=== PATIENT | male | born 1935 | race Caucasian/White ===

== ENCOUNTER 2017-02-13 10:04 | Inpatient (IN) | payer OTHER, MEDICARE ==
[~2017-02-13] VITALS: Ht 170.2 cm; Wt 76.2 kg
[~2017-02-13 10:04] MED LIST: FLOMAX0.4 M1 PO; MEDROL4 M2 PO; NASONEX17 GM NASB; TESSALON PERLE100 M1 PO; VENTOLIN HFA18 GM INH
--- NOTE | 2017-02-13 10:11 | NUR ---
PT STATES HE HAS HAD CHEST PAIN ON AND OFF FOR ONE WEEK. BIBA TODAY FOR FEELING DIZZY AND LIGHTHEADED ONLY WHEN HE WALKS OUTSIDE. PT IS SYMPTOM FREE WHEN HE IS AT REST. PT DENIES CHEST PAIN AT THIS TIME. EKG IN PROGRESS
[2017-02-13] MEDS ORDERED: HYDROCHLOROTHIA25 M1 PO (10:17)
[2017-02-13] MEDS ORDERED: LANSOPRAZOLE30 M2 PO (10:18)
[2017-02-13] MEDS ORDERED: BUPROPION XL150 MG PO (10:19)
[2017-02-13] MEDS ORDERED: CLONAZEPAM0.5 M2 PO (10:19)
[2017-02-13] MEDS ORDERED: DONEPEZIL HCL5 MG PO (10:20)
[2017-02-13] MEDS ORDERED: FLOMAX0.4 M1 PO (10:21)
[2017-02-13] MEDS ORDERED: METOPROLOL SUCC50 M2 PO (10:21)
[2017-02-13] MEDS ORDERED: TRAZODONE HCL100 M1 PO (10:21)
[2017-02-13] MEDS ORDERED: ALLEGRA ALLERGY60 M1 PO (10:23)
[2017-02-13] MEDS ORDERED: STENDRA PO (10:23)
[2017-02-13] MEDS ORDERED: ASPIRIN EC81 M1 PO (10:23)
--- NOTE | 2017-02-13 10:30 | NUR ---
PT TO CT SCAN VIA STRETCHER
[2017-02-13 10:50] LABS: ABSOLUTE BASOPHIL COUNT 0 /CUMM (0.0-0.2); ABSOLUTE EOSINOPHIL COUNT 0.4 /CUMM (0.0-0.7); ABSOLUTE GRANULOCYTE CT 4.1 /CUMM (1.4-6.5); ABSOLUTE LYMPH COUNT 1.3 /CUMM (1.2-3.4); ABSOLUTE MONOCYTE COUNT 0.4 /CUMM (0.10-0.60); BASOPHIL % 0.4 % (0.0-2.0); EOSINOPHIL % 6.5 % (0-5); GRANULOCYTE % 64.9 % (42.2-75.2); HEMATOCRIT 38.7 % (42-52); MEAN CORPUSCULAR HGB CONC 34.6 G/DL (33.0-37.0); MEAN CORPUSCULAR VOLUME 95.3 FL (80.0-94.0); MEAN PLATELET VOLUME 7.1 FL (7.4-10.4); PLATELET COUNT 303 /CUMM (130-400); RBC DISTRIBUTION WIDTH 13.6 % (11.5-14.5); RED BLOOD CELL CT 4.06 /CUMM (4.70-6.10); WHITE BLOOD CELL COUNT 6.3 /CUMM (4.8-10.8)
--- NOTE | 2017-02-13 11:24 | NUR ---
[facility] FAMILY AT BEDSIDE
--- NOTE | 2017-02-13 11:27 | CT SCAN REPORT ---
EXAMINATION: CT HEAD WITHOUT CONTRAST CLINICAL INFORMATION: Dizziness, gait instability. COMPARISON: CT scan of the head 08/14/2016. TECHNIQUE: Contiguous axial imaging was performed from the skull base to vertex without intravenous administration of contrast. DLP: 600.71 mGy-cm FINDINGS: There is no evidence of acute intracranial hemorrhage or territorial infarction. No abnormal mass effect or midline shift is seen. South to white matter differentiation is well preserved. No extra-axial fluid collections are identified. There is mild prominence of the ventricles with commensurate sulcal prominence, similar compared to the prior study and consistent with mild diffuse volume loss. Low attenuation in the periventricular white matter is most consistent with chronic microvascular ischemic disease. This is again noted to be most prominent in the posterior right masters radiata. There are no acute osseous findings. There are degenerative changes in the bilateral temporomandibular joints. The soft tissues are unremarkable. The mastoid air cells are well-aerated. There is mucoperiosteal thickening in the anterior left ethmoid air cells, increased compared to the prior study. The nasal septum is deviated to the right and there is a prominent right-sided bony nasal septal spur. IMPRESSION: 1. There are no acute intracranial bleeds or territorial infarcts. 2. There are changes consistent with mild diffuse volume loss and there are sequelae of chronic microvascular ischemic disease.
--- NOTE | 2017-02-13 11:28 | RADIOLOGY REPORT ---
EXAMINATION: XR PORTABLE CHEST CLINICAL INFORMATION: Chest pain and weakness. COMPARISON: Chest 03/21/2016. TECHNIQUE: Portable AP view of the chest was obtained. FINDINGS: Both lungs are fairly well-expanded and clear of acute process. The heart size is enlarged. Pulmonary vascularity is normal. No gross bony abnormality seen. IMPRESSION: Mild cardiomegaly. No acute process seen.
--- NOTE | 2017-02-13 11:45 | ED AMS/SEIZURE/WEAK/DIZZY ---
History of Present Illness General Chief Complaint: Chest Pain Stated Complaint: BIBA CP Source: patient, family, old records, EMS Exam Limitations: no limitations Vital Signs & Intake/Output Vital Signs & Intake/Output Vital Signs Date Time Temp Pulse Resp B/P Pulse O2 O2 Flow FiO2 Ox Delivery Rate 02/13 1352 98.0 58 16 132/74 95 Room Air 02/13 1120 55 16 128/67 94 Room Air 02/13 1027 97.7 52 16 146/78 93 Room Air 02/13 1011 95 Allergies Coded Allergies: azithromycin (From ZITHROMAX) (UNKNOWN 02/13/17) Penicillins (Mild, ABDOMINAL CRAMPING 10/31/16) Uncoded Allergies: MRI DYE (Severe, RED, HOT SKIN REACTION 10/31/16) Reconcile Medications Aspirin (Ecotrin*) 81 MG TABLET.DR 1 TAB PO DAILY SUPPLEMENT (Reported) Bupropion HCl (Bupropion XL) 150 MG TAB.ER.24H 1 TAB PO DAILY DEPRESSION ( Reported) Clonazepam 0.5 MG TABLET 1 TAB PO QHS SLEEP (Reported) Donepezil HCl 5 MG TABLET 1 TAB PO DAILY DEMENTIA (Reported) Fexofenadine HCl (Karie Allergy) 60 MG TABLET 180 MG PO D ALLERGY (Reported ) Hydrochlorothiazide 25 MG TABLET 1 TAB PO DAILY HTN (Reported) Lansoprazole 30 MG CAPSULE.DR 1 CAP PO DAILY GERD (Reported) Metoprolol Succinate 50 MG TAB.ER.24H 1 TAB PO DAILY HTN (Reported) Mometasone Furoate (Nasonex) 17 GM SPRAY.PUMP 2 SPRAY NASB DAILY ALLERGIC RHINITIS Tamsulosin HCl (Flomax) 0.4 MG CAP.ER.24H 1 CAP PO DAILY KIDNEY STONE Trazodone HCl 100 MG TABLET 1 TAB PO QPM SLEEP (Reported) Core Measure Meds Pre-Hospital aspirin Triage Note: PT STATES HE HAS HAD CHEST PAIN ON AND OFF FOR ONE WEEK. BIBA TODAY FOR FEELING DIZZY AND LIGHTHEADED ONLY WHEN HE WALKS OUTSIDE. PT IS SYMPTOM FREE WHEN HE IS AT REST. PT DENIES CHEST PAIN AT THIS TIME. EKG IN PROGRESS Triage Nurses Notes Reviewed? yes Onset: several weeks Duration: week(s):, continues in ED, intermittent Timing: recent history Injury Environment: home Severity: moderate Modifying Factors: Improves With: rest. Worsens With: movement. HPI: Several weeks prior to admission patient reports episodes of dizziness and feeling off balance when walking worse when standing. He also complains of chest pain sharp improving with ambulation nonradiating intermittent. He denies fever chills nausea vomiting diarrhea abdominal pain shortness of breath headache dysuria rash bleeding congestion change in hearing. Past History Travel History Traveled to [place] past 21 day No Medical History Any Pertinent Medical History? see below for history Neurological: dementia, ABNORMAL INV. 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 No Review of Systems Review of Systems Constitutional: Reports: see HPI, malaise. EENTM: Reports: no symptoms. Respiratory: Reports: no symptoms. Cardiovascular: Reports: see HPI, chest pain. GI: Reports: no symptoms. Genitourinary: Reports: no symptoms. Musculoskeletal: Reports: no symptoms. Skin: Reports: no symptoms. Neurological/Psychological: Reports: see HPI. Hematologic/Endocrine: Reports: no symptoms. Immunologic/Allergic: Reports: no symptoms. All Other Systems: Reviewed and Negative Physical Exam Physical Exam General Appearance: well developed/nourished, alert, awake, anxious, mild distress Head: atraumatic, normal appearance Eyes: Bilateral: normal appearance, PERRL, EOMI, other (nystagmus). Ears, Nose, Throat: normal pharynx, normal ENT inspection Neck: normal inspection, supple, full range of motion, no midline tenderness Respiratory: normal breath sounds, chest non-tender, no respiratory distress, quiet respiration, lungs clear Cardiovascular: regular rate/rhythm, normal peripheral pulses, norml femoral pulses equa Peripheral Pulses: 4+ carotid (R), 4+ carotid (L) Gastrointestinal: normal bowel sounds, soft, non-tender, no organomegaly Back: normal inspection, normal range of motion Extremities: normal range of motion, no ligament instability Neurologic/Psych: no motor/sensory deficits, awake, alert, oriented x 3, normal mood/affect, 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 Skin: intact, normal color Lymphatic: no anterior cervical lawrence Core Measures ACS in differential dx? Yes ASA ordered for poss ACS? No-ACS ruled out CVA/TIA Diagnosis: No Severe Sepsis Present: No Septic Shock Present: No Progress Differential Diagnosis: arrythmia, anemia, benign positional vertigo, CVA/stroke , electrolyte imbalance, hypoxia Plan of Care: Orders Procedure Date/time Status Regular Diet 02/13 L Complete Regular Diet 02/13 D Active Code Status 02/13 1518 Active Saline Lock 02/13 1500 Active Pathway - chart 02/13 1500 Active House Staff 02/13 1500 Active Patient Data 02/13 1447 Active OXYGEN SETUP (GEN) 02/13 1425 Active Saline Lock 02/13 1425 Active Admit to inpatient 02/13 1425 Active Vital Signs 02/13 1425 Active Activity/Ambulation 02/13 1425 Active Code Status 02/13 1425 Complete CASE MANAGEMENT CONSULT 02/13 1352 Active Add-on Test (ER Only) 02/13 1026 Active MAGNESIUM 02/13 1024 Active VITAMIN B12 02/13 1024 Active TROPONIN LEVEL 02/13 1013 Active COMPREHENSIVE METABOLIC PANEL 02/13 1013 Active CBC WITHOUT DIFFERENTIAL 02/13 1013 Complete EKG 02/13 1006 Active PT Evaluate & Treat 02/13 UNK Active Lab Add-on Test 02/13 UNK Active VTE Mechanical Prophylaxis 02/13 UNK Active MISTAKE 02/13 UNK Active Current Medications Sig/Lali Start time Last Medication Dose Stop Time Status Admin Acetaminophen 650 MG Q6P PRN 02/13 1500 AC (Tylenol) Ketorolac 15 MG Q6P PRN 02/13 1500 AC Tromethamine (Toradol) Morphine Sulfate 2 MG Q4P PRN 02/13 1500 AC (Morphine) Laboratory Tests 02/13/17 1024: Anion Gap 10, Estimated GFR > 60, BUN/Creatinine Ratio 23.8, Glucose 93, Calcium 9.6, Magnesium 1.8, Total Bilirubin 0.7, AST 32, ALT 31, Alkaline Phosphatase 61 , Troponin I < 0.01, Total Protein 6.6, Albumin 3.8, Globulin 2.8, Albumin/ Globulin Ratio 1.4, Vitamin B12 Pending, CBC w Diff NO MAN DIFF REQ, RBC 4.06 L , MCV 95.3 H, MCH 33.0 H, RDW 13.6, MPV 7.1 L, Gran % 64.9, Lymphocytes % 21.2, Monocytes % 7.0, Eosinophils % 6.5 H, Basophils % 0.4, Absolute Granulocytes 4.1, Absolute Lymphocytes 1.3, Absolute Monocytes 0.4, Absolute Eosinophils 0.4, Absolute Basophils 0, PUBS MCHC 34.6 Diagnostic Imaging: Viewed by Me: Radiology Read, CT Scan. Discussed w/RAD: Radiology Read, CT Scan. Radiology Impression: no acute abnormality CXR Impression: no acute abnormality Initial ED EKG: normal intervals, normal p-waves, normal sinus rhythm, LBBB ( incomplete), no ST T wave changes Rhythm Strip: normal sinus rhythm Comments: Patient with unsteady gait still feeling dizzy feeling like he would fall without assistance. Family with walk still with unsteady gait. Poor response to scopolamine patch and meclizine. Departure Departure Disposition: STILL A PATIENT Condition: Stable Clinical Impression Primary Impression: Vertigo Secondary Impressions: Gait instability Referrals: RINA RICO,HAYLEY Barker (PCP/Family) Departure Forms: Customer Survey General Discharge Information Admission Note Spoke With: SHANKAR MYERS MD Documentation of Exam: Documentation of any treatments & extenuating circumstances including Concerns Regarding Discharge (functional status, medication knowledge or non-compliance, living conditions, etc.) that warrant an admission rather than observation: Physical therapy medication adjustment ensure safety prevent falls and injury continuing care discharge planning
--- NOTE | 2017-02-13 11:46 | NUR ---
INFORMED WAITING PERFORMED
--- NOTE | 2017-02-13 12:06 | NUR ---
PT AMBULATED DOWN [facility] WITH STAND BY ASSIST OF ONE PT STATES HE FEELS OFF BALANCE "NOT LIKE THE ROOM IS SPINNING, JUST OFF BALANCE" DR. HAZEL MADE AWARE
--- NOTE | 2017-02-13 12:11 | NUR ---
PT TO HAVE LUNCH AND BE RE-EVALED
--- NOTE | 2017-02-13 13:21 | NUR ---
PT AMBULATED AFTER EATING AND STATES HE CONT. TO FEEL DIZZY MD MADE AWARE CONT. CARE TO VISIT PT
--- NOTE | 2017-02-13 13:51 | NUR ---
PT AMBULATED WITH WALKER GAIT STEADY BUT CONT. TO FEEL DIZZY AND UNSAFE
--- NOTE | 2017-02-13 14:14 | NUR ---
Case mgmnt TSF: I went in and introduced myself to patient and role. We discussed plans of care and patient is agreeable. Patient stated that he still felt off balance and not really safe. CM continuing to follow.
--- NOTE | 2017-02-13 14:48 | NUR ---
HOUSE STAFF IN ROOM FOR EVAL.
--- NOTE | 2017-02-13 15:24 | History & Physical ---
WILLIAM NAVARRO 02/13/17 1524: General Information and HPI MD Statement: I have seen and personally examined BOBBY HERNANDEZ and documented this H&P. The patient is a 82 year old M who presented with a patient stated chief complaint of dizziness Source of Information: patient Exam Limitations: no limitations History of Present Illness: 82 year old gentleman with b/l hearing impairment, from assisted living ([facility]), past medical history significant for HTN, Alzhiemers and BPH, BIBA ambulance for evaluation of dizziness. Dizziness is of three days duration and was sudden in onset and is intermittent. States that it comes on when he is already standing and starts to walk and feels off balance during those times. No allieviating factors. Feels his dizziness has improved with meclizine which was given in ED. Denies falls, poor PO intake numbness,tingling, weakness of extremities, vision changes or headaches. Of note he reports a transient episode of word finding difficulty this morning around 9 am. States that chest pain is chronic (years) in nature and comes on at times when he walks and subsides on its on. Denies shortnes of breath, palpitations or lower extremity swelling. He continues to drive and independant with activities of daily living and ambulation. Allergies/Medications Allergies: Coded Allergies: azithromycin (From ZITHROMAX) (UNKNOWN 02/13/17) Penicillins (Mild, ABDOMINAL CRAMPING 10/31/16) Uncoded Allergies: MRI DYE (Severe, RED, HOT SKIN REACTION 10/31/16) Home Med list Aspirin (Ecotrin*) 81 MG TABLET.DR 1 TAB PO DAILY SUPPLEMENT (Reported) Bupropion HCl (Bupropion XL) 150 MG TAB.ER.24H 1 TAB PO DAILY DEPRESSION ( Reported) Clonazepam 0.5 MG TABLET 1 TAB PO QHS SLEEP (Reported) Donepezil HCl 5 MG TABLET 1 TAB PO DAILY DEMENTIA (Reported) Fexofenadine HCl (Karie Allergy) 60 MG TABLET 180 MG PO D ALLERGY (Reported ) Hydrochlorothiazide 25 MG TABLET 1 TAB PO DAILY HTN (Reported) Lansoprazole 30 MG CAPSULE.DR 1 CAP PO DAILY GERD (Reported) Metoprolol Succinate 50 MG TAB.ER.24H 1 TAB PO DAILY HTN (Reported) Mometasone Furoate (Nasonex) 17 GM SPRAY.PUMP 2 SPRAY NASB DAILY ALLERGIC RHINITIS Tamsulosin HCl (Flomax) 0.4 MG CAP.ER.24H 1 CAP PO DAILY KIDNEY STONE Trazodone HCl 100 MG TABLET 1 TAB PO QPM SLEEP (Reported) Compliance With Home Meds: GOOD Past History Travel History Traveled to [place] past 21 day No Medical History Neurological: dementia EENT: hearing loss Cardiovascular: hypertension, hyperlipidemia Respiratory: NONE, INSOMNIA Gastrointestinal: GERD Hepatic: NONE Renal: NONE Musculoskeletal: NONE Psychiatric: depression Endocrine: NONE Blood Disorders: NONE Cancer(s): MELANOMA 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 EENTM: Reports: blurred vision, double vision, visual changes, ear pain. Cardiovascular: Denies: chest pain, edema, orthopena, palpitations, peripheral edema, syncope. Respiratory: Denies: cough, hemoptysis, orthopnea, short of breath, sputum production, stridor, wheezing. GI: Denies: abdominal pain, bloating, constipation, diarrhea, distention, bowel incontinence, melena, nausea, bloody stool, changes in stool, vomiting, steatorrhea. Genitourinary: Denies: discharge, dysuria, frequency, hematuria, hesitation, nocturia, pain, urgency. Musculoskeletal: Denies: back pain, gout, joint pain, joint swelling, muscle pain, muscle stiffness, neck pain. Neurological/Psychological: Reports: dementia. Denies: ataxia, cognitive dysfunction, confusion, headache, numbness, paresthesia, pre-existing deficit, petit mal seizures, tingling, tremors, tonic-clonic seizures, unable to move lower ext, unable to move upper ext, weakness, other. Exam & Diagnostic Data Last 24 Hrs of Vital Signs/I&O Vital Signs Date Time Temp Pulse Resp B/P Pulse O2 O2 Flow FiO2 Ox Delivery Rate 02/13 1352 98.0 58 16 132/74 95 Room Air 02/13 1120 55 16 128/67 94 Room Air 02/13 1027 97.7 52 16 146/78 93 Room Air 02/13 1011 95 Intake & Output 02/13 1600 02/13 0800 04 0000 Intake Total Output Total Balance Patient 168 lb Weight Physical Exam General Appearance Alert, Oriented X3, Cooperative, No Acute Distress HEENT Atraumatic, PERRLA, EOMI, Mucous Membr. moist/pink Neck Supple, No JVD, No thryomegaly, +2 Carotid Pulse wo Bruit Lymphatic Cervical nl Cardiovascular Regular Rate, Normal S1, Normal S2, No Murmurs Lungs Clear to Auscultation, Normal Air Movement Abdomen Normal Bowel Sounds, Soft, No Tenderness Neurological Normal Gait, Normal Speech, Strength at 5/5 X4 Ext, Normal Tone, Sensation Intact, Cranial Nerves 3-12 NL, negative pronator drift, mildly positive Rhomberg Extremities No Edema Last 24 Hrs of Labs/[place]: Laboratory Tests 02/13/17 1024: Anion Gap 10, Estimated GFR > 60, BUN/Creatinine Ratio 23.8, Glucose 93, Calcium 9.6, Magnesium 1.8, Total Bilirubin 0.7, AST 32, ALT 31, Alkaline Phosphatase 61 , Troponin I < 0.01, Total Protein 6.6, Albumin 3.8, Globulin 2.8, Albumin/ Globulin Ratio 1.4, Vitamin B12 Pending, CBC w Diff NO MAN DIFF REQ, RBC 4.06 L , MCV 95.3 H, MCH 33.0 H, RDW 13.6, MPV 7.1 L, Gran % 64.9, Lymphocytes % 21.2, Monocytes % 7.0, Eosinophils % 6.5 H, Basophils % 0.4, Absolute Granulocytes 4.1, Absolute Lymphocytes 1.3, Absolute Monocytes 0.4, Absolute Eosinophils 0.4, Absolute Basophils 0, PUBS MCHC 34.6 Diagnostic Data EKG Results NSR. first degree heart block CXR Results FINDINGS: Both lungs are fairly well-expanded and clear of acute process. The heart size is enlarged. Pulmonary vascularity is normal. No gross bony abnormality seen. IMPRESSION: Mild cardiomegaly. No acute process seen. Other Results SERVICE DATE: 02/13/17 EXAM TYPE: CAT - CT HEAD WO IV CONTRAST EXAMINATION: CT HEAD WITHOUT CONTRAST FINDINGS: There is no evidence of acute intracranial hemorrhage or territorial infarction. No abnormal mass effect or midline shift is seen. South to white matter differentiation is well preserved. No extra-axial fluid collections are identified. There is mild prominence of the ventricles with commensurate sulcal prominence, similar compared to the prior study and consistent with mild diffuse volume loss. Low attenuation in the periventricular white matter is most consistent with chronic microvascular ischemic disease. This is again noted to be most prominent in the posterior right masters radiata. There are no acute osseous findings. There are degenerative changes in the bilateral temporomandibular joints. The soft tissues are unremarkable. The mastoid air cells are well-aerated. There is mucoperiosteal thickening in the anterior left ethmoid air cells, increased compared to the prior study. The nasal septum is deviated to the right and there is a prominent right-sided bony nasal septal spur. IMPRESSION: 1. There are no acute intracranial bleeds or territorial infarcts. 2. There are changes consistent with mild diffuse volume loss and there are sequelae of chronic microvascular ischemic disease. Assessment/Plan Assessment: 82 year old gentleman with b/l hearing impairment, from assisted living ([facility]), past medical history significant for HTN, Alzhiemers and BPH, BIBA ambulance for evaluation of dizziness. Vital signs are stable, Cxr negative for acute process. CAT scan of the head did not show any acute intracranial bleed, however there are old chronic vascular changes. problem list: Presyncope HTN BPH Alzheimers Plan admit to tele floor for q2h neurochecks and monitor for arrthymias or bradycardia d/d for dizziness: orthostatic VS dehydration VS TIA in Posterior cerebellar circulation passed bedside swallow eval gentle hydration with IV fluids, recheck orthostats f/up carotid US, cardiology consult in the am Consider neurology consult PT Evaluation Continue home meds of flomax, toprol, HTCZ,Donepezil, wellbutrin, ASA DVT ppx ALPS DNR/DNI As Ranked By This Provider Problem List: 1. Vertigo 2. Gait instability Core Measures/Miscellaneous Acute Coronary Syndrome ACS Diagnosis: No Cerebrovascular Accident CVA/TIA Diagnosis: Yes NIH Stroke Scale: Total 0 Date Last Known Well: 02/13/17 Time Last Known Well: 0900 Neurological S/S of CVA: Dizziness, Difficulty Speaking Symptom Start Date: 02/13/17 Symptom Start Time: 0900 Reason tPA not ordered Medical Contraindication Bedside Swallow Eval Done: Yes Result of Evaluation: Pass Antithrombotic: Yes AFIB: No Aflutter: No Anticoagulant: No No Anticoag d/t: Medical Contraindication Evidence of Atherosclerosis: No LDL Assessed Within 24 Hours: Yes Currently on Statin: No Rehab Needs Assessed: Medical Eval for Rehab PT Consult Ordered: Yes Congestive Heart Failure CHF Diagnosis: No Venous Thromboembolism VTE Risk Factors: Age > 40 No [facility] VTE prophylaxis d/t: No contraindications No VTE Pharm Prophylaxis d/t: No contraindications VTE Diagnosis: No VTE Type: NONE VTE Confirmed by (Test): NONE Severe Sepsis Severe Sepsis Present: No Septic Shock Septic Shock Present: No Miscellaneous Documentation Attending Case Discussed With: CASSIE STEVENSON M.D Primary Care Physician: HAYLEY FLYNN MD Patient sees these Specialists none Level of Patient Care: Telemetry DARREN RICO,[facility] 02/13/17 1535: Resident Review Statement Resident Statement: examined this patient, discussed with dietary internship, agreed with dietary internship, discussed with family, reviewed EMR data (avail), discussed with nursing , discussed with case mgmt, reviewed images, amended to note Other Findings: Bobby is an 82-year-old man with a history of dementia hypertension dyslipidemia GERD and depression who presents from assisted living ([facility]) with dizziness 3 days, word finding difficulty that started this morning. In his own words patient says he feels "off balance", also notes a relative decrease in liquid intake but his appetite remains adequate. No other symptoms after review in detail. His vital signs are 98F, heart rate of 58. Blood pressure is 132/74. His oxygen saturation is 95% on room air. Physical examination as above, notably he had an equivocal Romberg's. Labs are unremarkable. An EKG shows an old left bundle branch block. Chest x-ray is negative. CAT scan of the head did not show any acute intracranial bleed, however there are old chronic vascular changes. Suspect presyncope possibly due to dehydration, Subacute combined degeneration of spinal cord from B12 deficiency, or benign paroxysmal positional vertigo, meniere's disase. Depsite this, TIA cannot be ruled out and the patient should be monitored as such for atleast 24hrs. - Plan - Cont tele monitor serial enzyme/ekg neurochecks q2h Carotid US check orthostatic vs check b12 level NS @ 75cc/hr x 1L Continue Antivert PT evaluation ?DC recs Case management evaluation DVT ppx ALPS DNR/DNI CASSIE STEVENSON MD 02/13/17 1639: Attending MD Review Statement Attending Statement Attending MD Statement: examined this patient, discuss w/resident/PA/GROMMET MACHINE OPERATOR, agreed w/resident/PA/GROMMET MACHINE OPERATOR, reviewed EMR data (avail), discussed with nursing, discussed with case mgmt, amended to note Attending Assessment/Plan: 82-year-old male with history of mild dementia, hypertension presents to the emergency room today after noticing more difficulties. Denied any headache. Denied slurring speech or drooling saliva. He denies being told by his nurse at home that he had a facial droop. He denied any focal muscle weakness. He did notice that his gait was unsteady. He stated that he felt dizzy when walking. He came to the ED for evaluation. He was found afebrile and hemodynamically stable. EGD reported that he was stated on ambulation however reported dizziness. CT of the brain was done showed no acute intracranial process. Gen. appearance: Well-developed, not in any distress HEENT: Anicteric, no pallor, no nystagmus Neurologic: Power is 5 over 5 in all extremities. Normal muscle tone. No pronator just. Heart: S1-S2, bradycardic Lungs: Clear to auscultation bilaterally Abdomen: Soft, nontender with normal bowel sounds Extremities: No pedal edema. Laboratory data reviewed. Problems: 1. Transient word finding difficulties: Raising concern for transient neurologic events. 2. New onset dizziness 3. Chest pain; going on for 6 months. Aggravated by walking. Relieved at rest. 4. Left bundle branch block; no baseline here for comparison. 5. Mild dementia Plan: -Recommend observing the patient in hospital for the next 24-48 hours. After which further decision about his disposition family made. -Place on the telemetry service for cardiac monitoring to rule out arrhythmia that may be contributing to his dizziness and transient neurologic event. Patient is rotated to be bradycardic in the ER. We'll monitor closely for more pronounced bradycardia as his symptoms may be related to this. -Carotid Doppler to rule out any severe disease that may have contributed to his neurologic event. -Check orthostatic vitals. -A orthostatic vitals are negative and patient's dizziness persists would recommend an MRI/MRA of the head to rule out ischemia/vaso-occlusive disease in the posterior circulation. -Neurology consultation. -Physical therapy consultation. -His complaint of intermittent chest pain particularly with exertion raises concern for coronary disease particularly with his left bundle branch block however there is no previous EKG for comparison here. This currently asymptomatic and his first troponin is negative. Recommend monitoring the cardiac unit. Trend troponins. Obtain a cardiology consultation. Repeat EKG in the morning and obtain an echocardiogram as well. -If his dizziness improves in the next 24-48 hours he may be discharged home after the above workup has been completed.
--- NOTE | 2017-02-13 15:52 | NUR ---
BED ASSIGNMENT [id number]
--- NOTE | 2017-02-13 16:02 | NUR ---
PER MOD PT. WILL GO TO TELEMETRY NOT GEN MED
--- NOTE | 2017-02-13 16:22 | NUR ---
REPEAT TROP DRAWN AND SENT
--- NOTE | 2017-02-13 16:33 | NUR ---
LM FOR US THAT TEST NEEDS TO BE PORTABLE
--- NOTE | 2017-02-13 16:43 | NUR ---
BED ASSIGNMENT [id number]
--- NOTE | 2017-02-13 16:52 | NUR ---
REPORT GIVEN TO SEE CASTILLO PT TO HAVE US THEN TO FLOOR
[2017-02-13 18:11] VITALS: BP 138/70
--- NOTE | 2017-02-13 20:46 | NUR ---
HEART RATE BRADYCARDIC LOW 37 ONE TIME. ALL OTHER VITALS WNL. PT DENIES DIZZINESS, LIGHT HEADEDNESS. DR LINTON AWARE. PACER PADS AND ATROPINE ORDERED AND PLACED AT BEDSIDE.
[2017-02-13 23:24] VITALS: BP 112/60
--- NOTE | 2017-02-14 07:33 | PN- Housestaff ---
See Addendum Subjective Follow-up For: Transient word finding difficulties New onset dizziness Heart block and bradycardia Orthostatic hypotension Possible CVA vs TIA Tele-Events Since Last Visit: Sinus bradycardia HR 46-55 Transient drop in heart rate to 34 First degree heart block Subjective: No acute events overnight. Patient seen and examined this morning. He feels better. Dizziness has improved and word finding difficulties have resolved. Although he has episodes of bradycardia, he is asymptomatic. He denies chest pain, palpitations and shortness of breath. Review of Systems Constitutional: Reports: see HPI. Objective Last 24 Hrs of Vital Signs/I&O Vital Signs Date Time Temp Pulse Resp B/P Pulse O2 O2 Flow FiO2 Ox Delivery Rate 02/14 0806 97.7 45 20 140/72 95 Room Air 02/13 2324 97.9 52 20 112/60 92 Room Air 02/13 1811 98.0 50 20 138/70 95 Room Air 02/13 1621 53 18 110/68 94 Room Air 02/13 1352 98.0 58 16 132/74 95 Room Air 02/13 1120 55 16 128/67 94 Room Air Intake & Output 02/14 1600 02/14 0800 02/14 0000 Intake Total 720 825 Output Total 700 1 Balance 20 824 Intake, IV 600 225 Intake, Oral 120 600 Output, Other 1 Output, Urine 700 Patient 76.204 kg Weight Physical Exam General Appearance: Alert, Oriented X3, No Acute Distress HEENT: Atraumatic, Mucous Membr. moist/pink Neck: Supple Cardiovascular: Normal S1, Normal S2, Bradycardic Lungs: Clear to Auscultation Abdomen: Soft, No Tenderness, Positive Bowel Sounds Extremities: No Clubbing, No Cyanosis, No Edema Current Medications: Current Medications Sig/Lali Start time Last Medication Dose Route Stop Time Status Admin Acetaminophen 650 MG Q6P PRN 02/13 1500 AC PO Aspirin Buffered 81 MG DAILY 02/14 1000 AC 02/14 PO 1017 Atropine Sulfate 1 MG .STK-MED ONE 02/13 2043 DC IM 02/14 2044 Atropine Sulfate 0.5 MG ONCE PRN 02/13 2030 AC IV Bupropion HCl 150 MG DAILY 02/14 1000 AC 02/14 PO 1017 Clonazepam 0.5 MG AT BEDTIME 02/130 CAN PO 02/20 2159 Donepezil HCl 5 MG DAILY 02/14 1000 AC 02/14 PO 1017 Hydrochlorothiazide 25 MG DAILY 02/14 1000 AC PO Ketorolac 15 MG Q6P PRN 02/13 1500 AC Tromethamine IV Loratadine 10 MG DAILY 02/14 1000 AC 02/14 PO 1017 Meclizine HCl 12.5 MG ONCE ONE 02/13 1330 DC 02/13 PO 02/13 1331 1330 Meclizine HCl 0 .STK-MED ONE 02/13 1324 DC PO Metoprolol Succinate 50 MG DAILY 02/14 1000 CAN PO Morphine Sulfate 2 MG Q4P PRN 02/13 1500 DC IV Omeprazole 20 MG DAILY AC 02/14 0700 AC 02/14 PO 0553 Scopolamine HBr 1 PAT ONE ONE 02/13 1030 DC 02/13 TOP 02/13 1031 1047 Sodium Chloride 1,000 ML Q13H 02/13 1945 AC 02/14 IV 0828 Sodium Chloride 2 SPRAY Q4P PRN 02/13 1545 AC BRIT Tamsulosin HCl 0.4 MG DAILY 02/14 1000 AC PO Trazodone HCl 100 MG QPM 02/13 2200 AC 02/13 PO 2259 Last 24 Hrs of Lab/[place] Results Last 24 Hrs of Labs/[place]: Laboratory Tests 02/14/17 0650: Triglycerides 60, Cholesterol 154, LDL Cholesterol, Calc 92, HDL Cholesterol 50, Cholesterol/HDL Ratio 3 02/13/17 2210: Troponin I < 0.01 02/13/17 1621: Troponin I < 0.01 Orders Radiology Findings: CAROTID DOPPLER US: Hemodynamically significant stenoses consistent with a 50-79 % diameter reduction of the mid left internal carotid artery. A hemodynamically significant stenosis of greater than 50% is not present on the right. Miscellaneous Findings: MRI BRAIN WITHOUT CONTRAST: 1. There are no acute bleeds or infarcts. 2. There are changes consistent with diffuse volume loss and there are sequelae of chronic microvascular ischemic disease. Assessment/Plan Assessment: 82 y/o M with PMHx of HTN and mild dementia who presents with new onset dizziness and transient word finding difficulties. #Dizziness/word finding difficulties: Differential includes orthostatic hypotension given positive orthostatic vitals yesterday, symptomatic bradycardia given EKG with first degree AV block vs type 1 second degree AV block and TIA given transient word finding difficulties and carotid doppler US with 50-79% stenosis of left ICA. MRI with no acute infarct and with changes consistent with chronic microvascular ischemic disease. Orthostatic hypotension has resolved after receiving IVF overnight. Dizziness has improved and word finding difficulties have resolved. * Continue telemetry monitoring. * Neurology consulted. Appreciate their recs. * Cardiology following. Appreciate their recs. * Continue aspirin 81 mg PO daily. * ECHO pending. * Continue to work with PT. * OT consult requested. * Atropine and pacer pads at bedside. Administer if heart rate <30. #Chest pain: Intermittent chest pain exacerbated by exertion that has been ongoing for 6 months. Serial troponins negative. EKG on admission with left bundle branch block, no previous EKGs available for comparison. Repeat EKGs with left anterior fascicular block or right bundle branch block. * Stress test scheduled in the AM. #HTN: * Holding metoprolol succinate 50 mg PO daily in the setting of bradycardia. * Continue HCTZ 25 mg PO daily. #BPH: * Continue tamsulosin 0.4 mg PO daily. Hold for hypotension. #Dementia: * Continue donepezil 5 mg PO daily. Diet: NPO for stress test tomorrow DVT PPx: ALPs CODE: DNR/DNI Problem List: 1. Dizziness 2. Left carotid artery stenosis 3. Word finding difficulty 4. Heart block, AV 5. Bradycardia 6. BPH (benign prostatic hyperplasia) 7. Dementia Pain Ratin Pain Location: N/A Pain Goal: Remain pain free Pain Plan: Toradol 15 mg IV Q6H PRN for moderate pain (scale 4-6) Tylenol 650 mg PO Q6H for mild pain (scale 1-3) Tomorrow's Labs & Rationales: None
[2017-02-14 08:06] VITALS: BP 140/72
[2017-02-14] MEDS ORDERED: FLOMAX0.4 M1 PO (09:27)
--- NOTE | 2017-02-14 09:48 | ULTRASOUND REPORT ---
EXAMINATION: US DOPPLER CAROTID, BILATERAL CLINICAL INFORMATION: Near syncope, dizziness. COMPARISON: None TECHNIQUE: Duplex bilateral carotid ultrasound was performed using real-time ultrasound and Doppler techniques (integrating B-mode 2D vascular images, Doppler spectral analysis and color-flow Doppler imaging). These techniques were utilized to interrogate the extracranial carotid and vertebral arteries bilaterally. The degree of stenosis is based off criteria similar to NASCET. FINDINGS: 1. On the right: Plaque is present at the carotid bifurcation extending into the right ICA. However, velocities are normal and do not suggest a stenosis of greater than 50% diameter reduction in the right ICA. The vertebral artery is patent demonstrating antegrade flow. The right external carotid artery shows no significant stenosis. 2. On the left: There is a hemodynamically significant stenosis correlating to 50-79% diameter reduction of the mid internal carotid artery. A moderate amount of hyperechoic plaque is noted within the proximal and mid internal and external carotid arteries. The peak systolic and diastolic velocities as measured within the mid internal carotid artery equal 129 and 29 cm/s, respectively. The vertebral artery is patent demonstrating antegrade flow. The left external carotid artery shows no significant stenosis. IMPRESSION: Hemodynamically significant stenoses consistent with a 50-79% diameter reduction of the mid left internal carotid artery. A hemodynamically significant stenosis of greater than 50% is not present on the right.
--- NOTE | 2017-02-14 11:42 | NUR ---
PHYSICAL THERAPY: RECIEVED CONSULT ORDERS, REVIEWED CHART, ATTEMPTED TO SEE PATIENT THIS A.M. PATIENT WAS OBSERVED TRANSFERRING BED>STRETCHER WITH AX1 AND STEADY GAIT. IN THE CARE OF TRANSPORT TEAM, OFF THE FLOOR FOR MRI. WILL F/U APPROPRIATE UPON RETURN.
--- NOTE | 2017-02-14 12:16 | MRI REPORT ---
EXAMINATION: MR BRAIN WITHOUT CONTRAST CLINICAL INFORMATION: New onset dizziness. Assess for acute infarct. COMPARISON: CT scan of the head 02/13/2017. TECHNIQUE: MRI of the brain without contrast was obtained using routine sequences. FINDINGS: No diffusion abnormalities are identified to suggest an acute or subacute infarct. No mass effect or midline shift is seen. There is commensurate prominence of the ventricles and sulci consistent with mild diffuse volume loss. There are multiple scattered areas of increased T2 and FLAIR signal in the periventricular and subcortical white matter, most consistent with chronic microvascular ischemic changes. There is a prominent perivascular space in the right basal ganglia. No extra-axial fluid collections are seen. The brainstem and cerebellum are normal. No pathologic magnetic susceptibility artifact is identified on the gradient refocused acquisition. The craniovertebral junction, marrow signal, and midline structures are normal. The major intracranial flow-voids at the level of the enterprise of Vargas are preserved. The dural venous sinus flow-voids are maintained. The mastoid air cells are well-aerated. There is mild mucoperiosteal thickening in the maxillary and ethmoid sinuses bilaterally. The nasal septum is deviated to the right and there is right-sided bony nasal septal spur. IMPRESSION: 1. There are no acute bleeds or infarcts. 2. There are changes consistent with diffuse volume loss and there are sequelae of chronic microvascular ischemic disease.
--- NOTE | 2017-02-14 14:10 | PN- Student ---
DANYELLE ALVARADO 02/14/17 1408: Objective Objective: Event note: Orthostatic Vitals: Supine: * HR: 53 bpm * BP: 132/66, manual, RUE Sitting: * HR: 46 bpm * BP: 150/72, manual, RUE Standing: * HR: 52 bpm * BP: 120/70, manual, RUE
--- NOTE | 2017-02-14 14:33 | PN- Student ---
Subjective Subjective: Medical Student Daily Progress Note: Mr. Bobby Laguerre is a 82 yo M with a PMH of dementia and HTN who presented to the ED on 02/13/17 with a 3 day history of dizziness and a transient occurence of difficulty with speech. There were no overnight events. The patient denies any syncope, N/V, dizziness, CP, and SOB. He appears comfortable and energetic without complaints. Admission Labs/Imaging: CXR: mild cardiomegaly carotid US: significant stenosis w/ 50-79% reduction of the mid Left ICA Head CT: no bleeds or infarcts; mild diffuse volume loss, chronic microvascular ischemic disease Negative troponins EKG: Sinus bradycardia with 1st degree HB Objective Objective: Vitals: * Temp: 97.7 oral * HR: 45 bpm * RR: 20 * SpO2: 95% on RA * BP: 140/72 Physical Exam: N: A&O x3 CV: S1,S2; sinus bradycardia. No murmurs Pulmonary: CTA, symmetrical chest wall expansion GI: soft, non-tender. bowel sounds present and normoactive Extremities: bruising in right antecubital fossa; no extremity edema Results Results: Laboratory Tests 02/14/17 0650: Triglycerides 60, Cholesterol 154, LDL Cholesterol, Calc 92, HDL Cholesterol 50, Cholesterol/HDL Ratio 3 02/13/17 2210: Troponin I < 0.01 02/13/17 1024: Anion Gap 10, Estimated GFR > 60, BUN/Creatinine Ratio 23.8, Glucose 93, Calcium 9.6, Magnesium 1.8, Total Bilirubin 0.7, AST 32, ALT 31, Alkaline Phosphatase 61 , Troponin I < 0.01, Total Protein 6.6, Albumin 3.8, Globulin 2.8, Albumin/ Globulin Ratio 1.4, Vitamin B12 988 H, CBC w Diff NO MAN DIFF REQ, RBC 4.06 L, MCV 95.3 H, MCH 33.0 H, RDW 13.6, MPV 7.1 L, Gran % 64.9, Lymphocytes % 21.2, Monocytes % 7.0, Eosinophils % 6.5 H, Basophils % 0.4, Absolute Granulocytes 4.1, Absolute Lymphocytes 1.3, Absolute Monocytes 0.4, Absolute Eosinophils 0.4, Absolute Basophils 0, PUBS MCHC 34.6 Assessment/Plan Assessment: Mr. Laguerre is a 64yo M with PMH significant for HTN and dementia, admitted for dizziness and speech difficulties. He has had no events since admission. Plan: Dizziness: unclear etiology. Differentials to r/o: TIA, dehydration, arrhythmia, other cardiac etiology. Improving since admission. Received IVF with improvement and resolution of orthostatic hypotension. CT and MRI head were negative. Doppler US of Lt ICA with stenosis, suggestive of TIA as underlying etiology. 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 Initial EKG with LBBB * cardiology consult * Awaiting echo results Left ICA stenosis: Estimated at 50-79% occlusion. * Neurology consult * Consider vascular consult, pending neurology input * monitor with neurochecks * Monitor closely for further TIAs/events of difficulty with speech Diet: Regular DVT prophylaxis with HSQ, ALPS Code Status: DNR/DNI Pain: Toradol/Tylenol prn
--- NOTE | 2017-02-14 14:52 | Cons- Cardiology ---
General Information and HPI Consulting Request Date of Consult: 02/14/17 Requested By: ANASTASIIA GUZMÁN MD Reason for Consult: chest pain and dizziness Source of Information: patient, old records Exam Limitations: poor historian History of Present Illness: He is 82-year-old man from assisted living, [facility] with past medical history of Alzheimer's and hypertension presented to ER with complaint of lightheadedness and unsteady gait. According to patient when he starts walking he feels lightheadedness and 5/10 dull nonradiating left-sided chest pain. Chest pain goes away after 3 minutes or so. He denies any breathing difficulty, diaphoresis, palpitations, swelling or pain in his legs. He was also complaining of having word finding difficulties. Denies any focal neuro deficit. He saw a silk top hat body maker few years ago, Dr. Izaguirre for his "Heart disease" and does not follow any silk top hat body maker currently. Patient is feeling better today. He worked with physical therapy today and denies any dizziness or lightheadedness. No unsteadiness of gait was noted. He also denies any chest pain but reports that if he walks fast then chest pain comes in. Allergies/Medications Allergies: Coded Allergies: azithromycin (From ZITHROMAX) (UNKNOWN 02/13/17) Penicillins (Mild, ABDOMINAL CRAMPING 10/31/16) Uncoded Allergies: MRI DYE (Severe, RED, HOT SKIN REACTION 10/31/16) Home Med List: Aspirin (Ecotrin*) 81 MG TABLET.DR 1 TAB PO DAILY SUPPLEMENT (Reported) Bupropion HCl (Bupropion XL) 150 MG TAB.ER.24H 1 TAB PO DAILY DEPRESSION ( Reported) Clonazepam 0.5 MG TABLET 1 TAB PO QHS SLEEP (Reported) Donepezil HCl 5 MG TABLET 1 TAB PO DAILY DEMENTIA (Reported) Fexofenadine HCl (Karie Allergy) 60 MG TABLET 180 MG PO D ALLERGY (Reported ) Hydrochlorothiazide 25 MG TABLET 1 TAB PO DAILY HTN (Reported) Lansoprazole 30 MG CAPSULE.DR 1 CAP PO DAILY GERD (Reported) Metoprolol Succinate 50 MG TAB.ER.24H 1 TAB PO DAILY HTN (Reported) Mometasone Furoate (Nasonex) 17 GM SPRAY.PUMP 2 SPRAY NASB DAILY ALLERGIC RHINITIS Tamsulosin HCl (Flomax) 0.4 MG CAP.ER.24H 1 CAP PO QHS KIDNEY STONE Trazodone HCl 100 MG TABLET 1 TAB PO QPM SLEEP (Reported) Current Medications: Current Medications Sig/Lali Start time Last Medication Dose Route Stop Time Status Admin Acetaminophen 650 MG Q6P PRN 02/13 1500 AC PO Aspirin Buffered 81 MG DAILY 02/14 1000 AC 02/14 PO 1017 Atropine Sulfate 1 MG .STK-MED ONE 02/13 2043 DC IM 02/14 2044 Atropine Sulfate 0.5 MG ONCE PRN 02/13 2030 AC IV Bupropion HCl 150 MG DAILY 02/14 1000 AC 02/14 PO 1017 Clonazepam 0.5 MG AT BEDTIME 02/13 2200 CAN PO 02/20 2159 Donepezil HCl 5 MG DAILY 02/14 1000 AC 02/14 PO 1017 Hydrochlorothiazide 25 MG DAILY 02/14 1000 AC PO Ketorolac 15 MG Q6P PRN 02/13 1500 AC Tromethamine IV Loratadine 10 MG DAILY 02/14 1000 AC 02/14 PO 1017 Metoprolol Succinate 50 MG DAILY 02/14 1000 CAN PO Morphine Sulfate 2 MG Q4P PRN 02/13 1500 DC IV Omeprazole 20 MG DAILY AC 02/14 0700 AC 02/14 PO 0553 Sodium Chloride 1,000 ML Q13H 02/13 1945 AC 02/14 IV 0828 Sodium Chloride 2 SPRAY Q4P PRN 02/13 1545 AC BRIT Tamsulosin HCl 0.4 MG AT BEDTIME 02/14 2200 AC PO Tamsulosin HCl 0.4 MG DAILY 02/14 1000 DC PO Trazodone HCl 100 MG QPM 02/13 2200 AC 02/13 PO 2259 Review of Systems Review of Systems Constitutional: Reports: see HPI. 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 Assisted Living Services at Home: None Smoking Status: Never Smoked ETOH Use: occasional use Illicit Drug Use: denies illicit drug use Exam & Diagnostic Data Vital Signs and I&O Vital Signs Date Time Temp Pulse Resp B/P Pulse O2 O2 Flow FiO2 Ox Delivery Rate 02/14 0806 97.7 45 20 140/72 95 Room Air 02/13 2324 97.9 52 20 112/60 92 Room Air 02/13 1811 98.0 50 20 138/70 95 Room Air 02/13 1621 53 18 110/68 94 Room Air Intake & Output 02/14 1600 02/14 0800 02/14 0000 02/13 1600 02/13 0800 02/13 0000 Intake Total 720 825 Output Total 700 1 Balance 20 824 Intake, IV 600 225 Intake, Oral 120 600 Output, Other 1 Output, Urine 700 Patient 168 lb 168 lb Weight Physical Exam General Appearance: no apparent distress, alert, awake, comfortable Head: normal appearance Neck: supple Respiratory: normal breath sounds, chest non-tender, lungs clear Cardiovascular: bradycardia Gastrointestinal: normal bowel sounds, soft, non-tender, no organomegaly Extremities: no edema Diagnostic Data EKG Results EKG shows sinus rhythm but bradycardia with prolonged CA interval. Right bundle branch block with left anterior fascicular block. There are no old EKGs to compare. CXR Results Mild cardiomegaly. No acute process seen. Other Results Head CT did not show any acute intracranial bleeds are infarcts. Changes consistent with mild diffuse volume loss and chronic microvascular ischemic disease. Head MRI showed no acute bleeds or infarcts. Again changes consistent with diffuse volume loss and chronic microvascular ischemic disease. Carotid Doppler ultrasound showed hemodynamically significant stenosis consistent with 50-79% diameter reduction of mid left internal carotid artery. Assessment/Plan Assessment/Plan He is 82-year-old man from [facility] with past medical history of Alzheimer's and hypertension presented to ER with complaint of lightheadedness and unsteady gait. He was also concerned about his chest pain that comes in when he starts walking and goes away after 3 minutes or so. His chest pain has been going on for last 6 months. Patient is not a good historian. According to him he has been seen a silk top hat body maker, Dr. zIaguirre a few years ago for some kind of heart disease. His symptoms of TIA has almost resolved now. Head CT and MRI did not show any acute process. Carotid ultrasound showed left mid internal carotid artery stenosis that can be considered a cause of TIA. His troponins 3 are negative. He was bradycardiac on admission and his metoprolol has been held since then. EKG is showing bradycardia, prolonged CA interval, right bundle branch block and left anterior fascicular block. There are no old EKGs to compare. Currently patient denies any chest pain when he walked with physical therapy but reports that if he walks fast than chest pain comes in. chest pain, Dizziness or lightheadedness could be because of bradycardia. Patient was found to be orthostats negative in ER. PLAN * Monitor vitals closely. * Continue telemetry monitoring and watch for any arrhythmias * Continue holding metoprolol in the setting of bradycardia. * Echocardiogram * Vascular consult for left internal carotid artery stenosis * We will try to get records from Dr. Izaguirre office Problem List: 1. Gait instability 2. TIA (transient ischemic attack) Consult Acknowledgment - Thank you for your consult request.
[2017-02-14 16:11] VITALS: BP 126/62
--- NOTE | 2017-02-14 17:25 | Cons- Neurology ---
General Information and HPI Consulting Request Date of Consult: 02/14/17 Requested By: ANASTASIIA GUZMÁN MD Reason for Consult: Lightheaded dizziness Source of Information: patient, old records Exam Limitations: no limitations History of Present Illness: 82-year-old man reports several weeks of feeling lightheaded when up on his feet. When most severe he notes some difficulty with the legs of feeling rubbery. He does not report associated visual disturbance, lateralized weakness or numbness, diaphoresis, chest pain or palpitations. Symptoms relieved if he sits down. Allergies/Medications Allergies: Coded Allergies: azithromycin (From ZITHROMAX) (UNKNOWN 02/13/17) Penicillins (Mild, ABDOMINAL CRAMPING 10/31/16) Uncoded Allergies: MRI DYE (Severe, RED, HOT SKIN REACTION 10/31/16) Home Med List: Aspirin (Ecotrin*) 81 MG TABLET.DR 1 TAB PO DAILY SUPPLEMENT (Reported) Bupropion HCl (Bupropion XL) 150 MG TAB.ER.24H 1 TAB PO DAILY DEPRESSION ( Reported) Clonazepam 0.5 MG TABLET 1 TAB PO QHS SLEEP (Reported) Donepezil HCl 5 MG TABLET 1 TAB PO DAILY DEMENTIA (Reported) Fexofenadine HCl (Karie Allergy) 60 MG TABLET 180 MG PO D ALLERGY (Reported ) Hydrochlorothiazide 25 MG TABLET 1 TAB PO DAILY HTN (Reported) Lansoprazole 30 MG CAPSULE.DR 1 CAP PO DAILY GERD (Reported) Metoprolol Succinate 50 MG TAB.ER.24H 1 TAB PO DAILY HTN (Reported) Mometasone Furoate (Nasonex) 17 GM SPRAY.PUMP 2 SPRAY NASB DAILY ALLERGIC RHINITIS Tamsulosin HCl (Flomax) 0.4 MG CAP.ER.24H 1 CAP PO QHS KIDNEY STONE Trazodone HCl 100 MG TABLET 1 TAB PO QPM SLEEP (Reported) Current Medications: Current Medications Sig/Lali Start time Last Medication Dose Route Stop Time Status Admin Acetaminophen 650 MG Q6P PRN 02/13 1500 AC PO Aspirin Buffered 81 MG DAILY 02/14 1000 AC 02/14 PO 1017 Atropine Sulfate 1 MG .STK-MED ONE 02/13 2043 DC IM 02/14 2044 Atropine Sulfate 0.5 MG ONCE PRN 02/13 2030 AC IV Bupropion HCl 150 MG DAILY 02/14 1000 AC 02/14 PO 1017 Clonazepam 0.5 MG AT BEDTIME 02/13 2200 CAN PO 02/20 2159 Donepezil HCl 5 MG DAILY 02/14 1000 AC 02/14 PO 1017 Hydrochlorothiazide 25 MG DAILY 02/14 1000 AC PO Ketorolac 15 MG Q6P PRN 02/13 1500 AC Tromethamine IV Loratadine 10 MG DAILY 02/14 1000 AC 02/14 PO 1017 Metoprolol Succinate 50 MG DAILY 02/14 1000 CAN PO Morphine Sulfate 2 MG Q4P PRN 02/13 1500 DC IV Omeprazole 20 MG DAILY AC 02/14 0700 AC 02/14 PO 0553 Sodium Chloride 1,000 ML Q13H 02/13 1945 DC 02/14 IV 0828 Sodium Chloride 2 SPRAY Q4P PRN 02/13 1545 AC BRIT Tamsulosin HCl 0.4 MG AT BEDTIME 02/14 2200 AC PO Tamsulosin HCl 0.4 MG DAILY 02/14 1000 DC PO Trazodone HCl 100 MG QPM 02/13 2200 AC 02/13 PO 2259 Review of Systems Review of Systems: ROS: A complete medical systems review was obtained. No pertinent complaints were found. 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 Assisted Living Services at Home: None Smoking Status: Never Smoked ETOH Use: occasional use Illicit Drug Use: denies illicit drug use Exam & Diagnostic Data Vital Signs and I&O Vital Signs Date Time Temp Pulse Resp B/P Pulse O2 O2 Flow FiO2 Ox Delivery Rate 02/14 1611 98.7 48 20 126/62 97 Room Air 02/14 0806 97.7 45 20 140/72 95 Room Air 02/13 2324 97.9 52 20 112/60 92 Room Air 02/13 1811 98.0 50 20 138/70 95 Room Air Intake & Output 02/14 1600 02/14 0800 02/14 0000 Intake Total 1320 720 825 Output Total 600 700 1 Balance 720 20 824 Intake, IV 600 600 225 Intake, Oral 720 120 600 Output, Other 1 Output, Urine 600 700 Patient 168 lb Weight Physical Exam: On exam the patient appeared generally well and in no distress. No carotid bruits and no cardiac murmur. No peripheral edema Mental status: Alert, attentive, fully oriented, no language errors, immediate recall and general fund of knowledge seem intact, some short-term memory impairment Visual mariano full , Eye movements full without nystagmus, pupils midsize equal round and reactive to light. Facial movement normal bilaterally Facial sensation normal bilaterally Hearing reduced bilaterally Uvula elevates midline Tongue protrusion is midline Shoulder shrug symmetric Motor power and tone normal in all 4 extremities Sensation intact to primary modes Tendon reflexes normal and symmetric without pathologic signs Coordination no ataxia Gait normal occluding toe walking and tandem. Romberg test normal Last 48 Hours of Lab Results: Laboratory Tests 02/14 02/13 02/13 02/13 0650 2210 1621 1024 Chemistry Sodium (137 - 145 mmol/L) 139 Potassium (3.5 - 5.1 mmol/L) 3.8 Chloride (98 - 107 mmol/L) 103 Carbon Dioxide (22 - 30 mmol/L) 26 Anion Gap (5 - 16) 10 BUN (9 - 20 mg/dL) 19 Creatinine (0.7 - 1.2 mg/dL) 0.8 Estimated GFR (>60 ml/min) > 60 BUN/Creatinine Ratio (7 - 25 %) 23.8 Glucose (65 - 99 mg/dL) 93 Calcium (8.4 - 10.2 mg/dL) 9.6 Magnesium (1.6 - 2.3 mg/dL) 1.8 Total Bilirubin (0.2 - 1.3 mg/dL) 0.7 AST (17 - 59 U/L) 32 ALT (21 - 72 U/L) 31 Alkaline Phosphatase (< 127 U/L) 61 Troponin I (<0.11 ng/ml) < 0.01 < 0.01 < 0.01 Total Protein (6.3 - 8.2 g/dL) 6.6 Albumin (3.5 - 5.0 g/dL) 3.8 Globulin (1.9 - 4.2 gm/dL) 2.8 Albumin/Globulin Ratio (1.1 - 2.2 %) 1.4 Triglycerides (<150 mg/dL) 60 Cholesterol (< 200 MG/DL) 154 LDL Cholesterol, Calc (65 - 129 mg/dL) 92 HDL Cholesterol (40 - 60 mg/dL) 50 Cholesterol/HDL Ratio (0.00 - 4.88 %) 3 Vitamin B12 (239 - 931 pg/mL) 988 H Hematology CBC w Diff NO MAN DIFF REQ WBC (4.8 - 10.8 /CUMM) 6.3 RBC (4.70 - 6.10 /CUMM) 4.06 L Hgb (14.0 - 18.0 G/DL) 13.4 L Hct (42 - 52 %) 38.7 L MCV (80.0 - 94.0 FL) 95.3 H MCH (27.0 - 31.0 PG) 33.0 H RDW (11.5 - 14.5 %) 13.6 Plt Count (130 - 400 /CUMM) 303 MPV (7.4 - 10.4 FL) 7.1 L Gran % (42.2 - 75.2 %) 64.9 Lymphocytes % (20.5 - 51.1 %) 21.2 Monocytes % (1.7 - 9.3 %) 7.0 Eosinophils % (0 - 5 %) 6.5 H Basophils % (0.0 - 2.0 %) 0.4 Absolute Granulocytes (1.4 - 6.5 /CUMM) 4.1 Absolute Lymphocytes (1.2 - 3.4 /CUMM) 1.3 Absolute Monocytes (0.10 - 0.60 /CUMM) 0.4 Absolute Eosinophils (0.0 - 0.7 /CUMM) 0.4 Absolute Basophils (0.0 - 0.2 /CUMM) 0 PUBS MCHC (33.0 - 37.0 G/DL) 34.6 Imaging/Other Studies: MRI brain: 1. There are no acute bleeds or infarcts. 2. There are changes consistent with diffuse volume loss and there are sequelae of chronic microvascular ischemic disease. Carotid Dopplers: Hemodynamically significant stenoses consistent with a 50-79% diameter reduction of the mid left internal carotid artery. A hemodynamically significant stenosis of greater than 50% is not present on the right. Assessment/Plan Assessment: Lightheaded dizziness most likely due to generalized cerebral hypoperfusion due to relatively low blood pressures for a patient of this age and in the presence of cerebrovascular disease. History, exam and MRI all argue against any acute neurologic process Recommendations: Reduction in antihypertensive regimen Of note he is on psychotropic medications which can provoke orthostasis. These measures should be reviewed No additional neurodiagnostic testing recommended No indication for vascular surgery evaluation for asymptomatic stenosis Consult Acknowledgment - Thank you for your consult request.
[2017-02-14] MEDS ORDERED: TAMSULOSIN HCL0.4 M1 PO (18:11)
[2017-02-14 22:37] VITALS: BP 118/64
--- NOTE | 2017-02-15 07:27 | PN- Housestaff ---
See Addendum Subjective Follow-up For: Dizziness Transient word finding difficulteis Orthostatic hypotension Chest pain Tele-Events Since Last Visit: Sinus rhythm HR 49-63 First degree heart block VT interval 0.32 Subjective: No acute events overnight. Patient seen and examined this morning. He feels good and has no complaints. He denies dizziness, chest pain, shortness of breath or palpitations. Patient reports that he was taking a lot of multivitamins and supplements purchased at a health store. Review of Systems Constitutional: Reports: see HPI. Objective Last 24 Hrs of Vital Signs/I&O Vital Signs Date Time Temp Pulse Resp B/P Pulse O2 O2 Flow FiO2 Ox Delivery Rate 02/15 1625 98.4 56 16 148/65 96 Room Air 02/15 0804 97.3 51 16 144/71 93 Room Air 02/14 2237 97.6 50 20 118/64 95 Intake & Output 02/15 1600 02/15 0800 02/15 0000 Intake Total 0 650 Output Total Balance 0 650 Intake, IV 0 0 Intake, Oral 0 650 Number 0 0 Bowel Movements Physical Exam General Appearance: Alert, Oriented X3, No Acute Distress HEENT: Atraumatic, Mucous Membr. moist/pink Neck: Supple Cardiovascular: Normal S1, Normal S2, Bradycardic Lungs: Clear to Auscultation Abdomen: Soft, No Tenderness, Positive Bowel Sounds Extremities: No Clubbing, No Cyanosis, No Edema Current Medications: Current Medications Sig/Lali Start time Last Medication Dose Route Stop Time Status Admin Acetaminophen 650 MG Q6P PRN 02/13 1500 AC PO Aspirin Buffered 81 MG DAILY 02/14 1000 AC 02/15 PO 1242 Atropine Sulfate 0.5 MG ONCE PRN 02/13 2030 AC IV Bupropion HCl 150 MG DAILY 02/14 1000 AC 02/15 PO 1243 Calcium Carbonate 500 MG ONCE ONE 02/14 2315 DC 02/14 PO 02/14 2316 2305 Dipyridamole 45 MG ONE ONE 02/15 0930 DC Dextrose/Water 31 ML IV 02/15 0959 Donepezil HCl 5 MG DAILY 02/14 1000 AC 02/15 PO 1243 Hydrochlorothiazide 25 MG DAILY 02/14 1000 AC 02/15 PO 1243 Ketorolac 15 MG Q6P PRN 02/13 1500 AC Tromethamine IV Loratadine 10 MG DAILY 02/14 1000 AC 02/15 PO 1243 Omeprazole 20 MG DAILY AC 02/14 0700 AC 02/15 PO 0631 Sodium Chloride 2 SPRAY Q4P PRN 02/13 1545 AC BRIT Tamsulosin HCl 0.4 MG AT BEDTIME 02/14 2200 AC 02/14 PO 2305 Trazodone HCl 100 MG QPM 02/13 2200 AC 02/14 PO 2305 Orders Radiology Findings: PERSANTINE STRESS AND RESTING SPECT MYOCARDIAL PERFUSION IMAGING STUDY: A moderately sized fixed perfusion abnormality is present in the inferior wall. No wall motion abnormalities are noted, and in particular there is no inferior wall hypokinesis. It is possible that the fixed abnormality in the inferior wall is due to attenuation by the adjacent diaphragm, but this appears slightly more severe than is usually seen with the latter. No other perfusion abnormalities are noted. Left ventricular wall motion and ejection fraction are normal. Assessment/Plan Assessment: 82 y/o M with PMHx of HTN and mild dementia who presents with new onset dizziness and transient word finding difficulties. #Dizziness/word finding difficulties: Although carotid doppler US showed 50-79% stenosis of left ICA concerning for TIA, per neurology current presentation is most likely secondary to generalized cerebral hypoperfusion in the setting of low blood pressures and cerebrovascular disease. Orthostatic hypotension, dizziness and word finding difficulties have resolved. * Discharge home today. * No need for physical therapy on discharge per PT eval. * Patient would like to follow up with his own neurologist Dr. Leon and has an appointment scheduled next month. * Continue aspirin 81 mg PO daily on discharge. #HTN: * Per cardiology, continue metoprolol succinate 50 mg PO daily on discharge given significant risk factors for heart disease. * HCTZ discontinued on discharge. * Bedtime trazodone dose reduced in half to 25 mg PO daily on discharge. * Patient instructed to bring a list of all his supplements as well as the bottles to to the appointment with his PCP to see if they could be contributing to hypotension. #Chest pain: Intermittent chest pain exacerbated by exertion that has been ongoing for 6 months. Pharmacological stress test with normal left ventricular wall motion and ejection fraction and unremarkable except for a moderately sized fixed perfusion abnormality in the inferior wall. * Continue metoprolol succinate 50 mg PO daily on discharge. * Outpatient referral for research psychologist Dr. Moulton provided. Patient instructed to follow up with him within one week of discharge. Diet: Regular DVT PPx: ALPs CODE: DNR/DNI Problem List: 1. Dizziness 2. Gait instability 3. Word finding difficulty 4. Orthostatic hypotension 5. Chest pain Pain Ratin Pain Location: N/A Pain Goal: Remain pain free Pain Plan: Tylenol 650 mg PO Q6H PRN for mild pain (scale 1-3) Toradol 15 mg IV Q6H PRN for moderate pain (scale 4-6) Tomorrow's Labs & Rationales: None
[2017-02-15 08:04] VITALS: BP 144/71
--- NOTE | 2017-02-15 08:04 | PN- Student ---
Subjective Subjective: Medical Student Daily Progress Note: Mr. Laguerre is a 82 yo M with a PMH of dementia and HTN who presented to the ED on 02/13/17 with lightheadedness that worsens with walking, and a single episode of transient word finding difficulties. He was subsequently admitted for workup. Overnight, he was in sinus bradycardia to NSR with first degree heart block, ranging from 49-63 bpm. DIEGO on two separate occasions was 0.32 ms. He had a significant bradycardic event with his heart rate dropping to 36 bpm while sleeping at approximately 0300. This morning, he denies dizziness, difficulty with speech, CP, SOB, N/V, and generalized pain. He appears well, in good spirits, and has no complaints. Current Medications Sig/Lali Start time Last Medication Dose Route Stop Time Status Admin Acetaminophen 650 MG Q6P PRN 02/13 1500 AC PO Aspirin Buffered 81 MG DAILY 02/14 1000 AC 02/15 PO 1242 Atropine Sulfate 0.5 MG ONCE PRN 02/13 2030 AC IV Bupropion HCl 150 MG DAILY 02/14 1000 AC 02/15 PO 1243 Calcium Carbonate 500 MG ONCE ONE 02/14 2315 DC 02/14 PO 02/14 2316 2305 Dipyridamole 45 MG ONE ONE 02/15 0930 DC Dextrose/Water 31 ML IV 02/15 0959 Donepezil HCl 5 MG DAILY 02/14 1000 AC 02/15 PO 1243 Hydrochlorothiazide 25 MG DAILY 02/14 1000 AC 02/15 PO 1243 Ketorolac 15 MG Q6P PRN 02/13 1500 AC Tromethamine IV Loratadine 10 MG DAILY 02/14 1000 AC 02/15 PO 1243 Omeprazole 20 MG DAILY AC 02/14 0700 AC 02/15 PO 0631 Sodium Chloride 1,000 ML Q13H 02/13 1945 DC 02/14 IV 0828 Sodium Chloride 2 SPRAY Q4P PRN 02/13 1545 AC BRIT Tamsulosin HCl 0.4 MG AT BEDTIME 02/14 2200 AC 02/14 PO 2305 Trazodone HCl 100 MG QPM 02/13 2200 AC 02/14 PO 2305 Objective Objective: Vital Signs Date Time Temp Pulse Resp B/P Pulse O2 O2 Flow FiO2 Ox Delivery Rate 02/15 0804 97.3 51 16 144/71 93 Room Air 04/13 2237 97.6 50 20 118/64 95 02/14 1611 98.7 48 20 126/62 97 Room Air Intake & Output 02/15 1600 02/15 0800 02/15 0000 Intake Total 0 650 Output Total Balance 0 650 Intake, IV 0 0 Intake, Oral 0 650 Number 0 0 Bowel Movements Physical Exam: General: Appears comfortable, resting Neuro: A&O x3, moving all extremities spontaneously CV: S1,S2; no murmurs. Pulmonary: CTA, no wheezing or rhonchi GI: abdomen soft, non-tender. Bowel sounds present and normoactive Extremities: no edema, warm and well perfused Results Results: Laboratory Tests 02/14/17 0650: Triglycerides 60, Cholesterol 154, LDL Cholesterol, Calc 92, HDL Cholesterol 50, Cholesterol/HDL Ratio 3 02/13/17 2210: Troponin I < 0.01 Awaiting Echo results Assessment/Plan Assessment: Mr. Laguerre is a 82 yoM with PMH significant for dementia and HTN who presented to the ED on 02/13/17 for lightheadedness that worsened with walking, and a single transient episode of word finding difficulty. He has shown improvement since admission with no new events. Plan: Lightheadedness and transient word finding difficulty:etiology unclear. Orthostatic hypotension has resolved. No new events of speech difficulty, but Doppler US of carotids showed 50-79% diameter reduction of Left mid ICA, concerning for TIA. However, per neuro, likely not TIA but generalized cerebral hypoperfusion 2/2 anti-hypertensive regimen. Pt has been monitored for bradycardia and will receive Echo and pharmacological stress test to r/o cardiac causes. * Continue telemetry monitoring * per neuro: Recommends decrease in anti-hypertensive regimen, evlauate neurologic medications for side effects. No need to consult vascular d/t ICA stenosis being asymptomatic * per cardiology: await Echo results, awaiting stress test. Recommendations for bradycardia as below * Continue ASA Bradycardia with 1st degree HB: Initial EKG showed evidence of 1st degree HB with possible transition to 2nd degree type 1 HB (Wenckebach phenomenon). HR ranged from 49-63 overnight, with one event at ~0300 with a HR of 36. Pt was sleeping at the time and bradycardia self-resolved. DIEGO on two occasions overnight was 0.32 ms. 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 Awaiting Echo results and stress test results. Hold metoprolol until bradycardia resolved. * Continue telemetry monitoring Left ICA stenosis: Carotid Doppler US showed 50-79% diameter reduction of mid Left ICA. Pt likely not candidate for surgical intervention as criteria include recent symptomatic carotid stenosis of 70-99% with a life expectancy of at least 5 years with surgically accessible carotid lesion, absence of clinically significant cardiac/pulmonary/other disease that greatly increases risk of anesthesia and surgery, and no prior ipsilateral endarterectomy (Reference: UpToDate, Carotid endarterectomy) * Neuro recommends against vascular consult, as written above. * Continue neuro checks * Close monitoring for further events suggestive of TIA, including word finding difficulties, other speech difficullties, motor difficulties, and AMS. BPH: treated with Tamsulosin 0.4mg daily. * Continue Tamsulosin GERD: chronic. Controlled with Lansoprazole 30 mg daily. * Continue Lansoprazole. Diet: Regular DVT prophylaxis: HSQ and ALPS Code Status: DNR/DNI
--- NOTE | 2017-02-15 13:20 | PN- Cardiology ---
Subjective Subjective: The patient is doing well today. He denies any cardiac symptoms whatsoever. Otherwise stable. Awaiting results of nuclear stress test. Objective Vital Signs and I&Os Vital Signs Date Time Temp Pulse Resp B/P Pulse O2 O2 Flow FiO2 Ox Delivery Rate 02/15 0804 97.3 51 16 144/71 93 Room Air 02/147 97.6 50 20 118/64 95 02/14 1611 98.7 48 20 126/62 97 Room Air Intake & Output 02/15 1600 02/15 0800 02/15 0000 02/14 1600 02/14 0000 Intake Total 0 650 1320 720 825 Output Total 600 700 1 Balance 0 650 720 20 824 Intake, IV 0 0 600 600 225 Intake, Oral 0 650 720 120 600 Number 0 0 Bowel Movements Output, Other 1 Output, Urine 600 700 Patient 168 lb Weight Current Medications: Current Medications Sig/Lali Start time Last Medication Dose Route Stop Time Status Admin Acetaminophen 650 MG Q6P PRN 02/13 1500 AC PO Aspirin Buffered 81 MG DAILY 02/14 1000 AC 02/15 PO 1242 Atropine Sulfate 0.5 MG ONCE PRN 02/13 2030 AC IV Bupropion HCl 150 MG DAILY 02/14 1000 AC 02/15 PO 1243 Calcium Carbonate 500 MG ONCE ONE 02/14 2315 DC 02/14 PO 02/14 2316 2305 Dipyridamole 45 MG ONE ONE 02/15 0930 DC Dextrose/Water 31 ML IV 02/15 0959 Donepezil HCl 5 MG DAILY 02/14 1000 AC 02/15 PO 1243 Hydrochlorothiazide 25 MG DAILY 02/14 1000 AC 02/15 PO 1243 Ketorolac 15 MG Q6P PRN 02/13 1500 AC Tromethamine IV Loratadine 10 MG DAILY 02/14 1000 AC 02/15 PO 1243 Omeprazole 20 MG DAILY AC 02/14 0700 AC 02/15 PO 0631 Sodium Chloride 1,000 ML Q13H 02/13 1945 DC 02/14 IV 0828 Sodium Chloride 2 SPRAY Q4P PRN 02/13 1545 AC BRIT Tamsulosin HCl 0.4 MG AT BEDTIME 02/14 2200 AC 02/14 PO 2305 Trazodone HCl 100 MG QPM 02/13 2200 AC 02/14 PO 2305 Results Last 48 Hrs of Labs/Mics: Laboratory Tests 02/14/17 0650: Triglycerides 60, Cholesterol 154, LDL Cholesterol, Calc 92, HDL Cholesterol 50, Cholesterol/HDL Ratio 3 02/13/17 2210: Troponin I < 0.01 02/13/17 1621: Troponin I < 0.01 Assessment/Plan Assessment/Plan Assessment: 1. Neurologic abnormalities with left internal carotid artery stenosis 2. History of chest pain syndrome 3. Dementia Recommendations: -The patient appears to be stable from a cardiac perspective. -Continue to monitor on telemetry pending the results of the nuclear stress test. -Assuming that the nuclear stress test is does not show any significant ischemia , the patient is stable for discharge from a cardiac perspective. -Await further decision/input from neurology, etc. Continue telemetry? No
--- NOTE | 2017-02-15 14:13 | Patient Discharge Instructions ---
Discharge Instructions General Discharge Information You were seen/treated for: Dizziness Transient word finding difficulties Chest pain Watch for these problems: Worsening dizziness Numbness in your face, arms or legs Confusion Persistent headache Chest pain or discomfort Special Instructions: Please follow up with primary care physician Dr. Bhavik Espinoza within one week of discharge. Please follow up with marketing intern Dr. Kamlesh Moulton within one week of discharge. Please follow up with your neurologist Dr. Aaron Leon within two weeks of discharge. Please bring a list of all your supplements as well as the bottles to your appointment with your primary care physician Dr. Bhavik Espinoza. Diet Continue normal diet: Yes Activity Full Activity/No Limits: Yes Acute Coronary Syndrome Inclusion Criteria At DC or during hospital stay patient has or had the following: ACS DIAGNOSIS No Discharge Core Measures Meds if any: Prescribed or Continued at Discharge Meds if any: NOT Prescribed or Continued at Discharge Congestive Heart Failure Inclusion Criteria At DC or during hospital stay patient has or had the following: CHF DIAGNOSIS No Discharge Core Measures Meds if any: Prescribed or Continued at Discharge Meds if any: NOT Prescribed or Continued at Discharge Cerebrovascular accident Inclusion Criteria At DC or during hospital stay patient has or had the following: CVA/TIA Diagnosis No Discharge Core Measures Meds if any: Prescribed or Continued at Discharge Meds if any: NOT Prescribed or Continued at Discharge Venous thromboembolism Inclusion Criteria VTE Diagnosis No VTE Type NONE VTE Confirmed by (Test) NONE Discharge Core Measures - Per Current guidelines, there needs to be overlap - treatment for the first 5 days of Warfarin therapy. - If discharged on Warfarin prior to 5 days of - overlap therapy, the patient will need to be - assessed for post discharge needs including - *Post discharge parental anticoagulation - *Warfarin and/or parental anticoagulation education - *Follow up date to check INR post discharge At least 5 days overlap therapy as Inpatient No Meds if any: Prescribed or Continued at Discharge Note: Overlap Therapy is Warfarin and Anticoagulant Meds if any: NOT Prescribed or Continued at Discharge
--- NOTE | 2017-02-15 14:21 | NUR ---
OCCUPATIONAL THERAPY NOTE: ATTEMPTED TO SEE PT IN AM, PT OFF UNIT FOR TEST. OT WILL F/U ON SATURDAY IF APPROPRIATE.
--- NOTE | 2017-02-15 16:15 | NUCLEAR MEDICINE REPORT ---
PERSANTINE STRESS AND RESTING SPECT MYOCARDIAL PERFUSION IMAGING STUDY WITH GATED SPECT IMAGES: CLINICAL INDICATION: Atypical chest pain. PROCEDURE: Regional myocardial perfusion was assessed using a 1 day protocol. Stress images were obtained on 02/15/2017 following the intravenous administration of 18.8 mCi Tc 99m Myoview. Stress consisted of 45 mg Persantine given intravenously. Following the sestamibi injection no aminophylline was given intravenously. Rest images were obtained 02/15/2017 following the intravenous administration of 30.6 mCi Technetium 99m Myoview. Single photon emission tomographic (SPECT) images were obtained. SPECT images were acquired in a 64 x 64 matrix of 64 projections over 180 degrees. These were reconstructed into standard short axis, horizontal and vertical long axis cardiac projections. FINDINGS: The post stress images show the left ventricular chamber to be normal in size. There is a moderately sized region of markedly diminished activity that involves the entire inferior wall and extends to the apex.. The activity in the other frey appears normal. The rest images are not significantly changed from the post stress images and also show diffusely decreased activity in the inferior wall that extends to the apex. The other frey appear normal and are unchanged from the post stress images. The images were obtained using a gated SPECT technique, which permits visualization of wall motion and calculation of the left ventricular ejection fraction. No left ventricular wall motion abnormalities are noted. In particular the inferior wall moves normally. The calculated left ventricular ejection fraction is 70% on the stress study. No previous study is available for comparison. IMPRESSION: A moderately sized fixed perfusion abnormality is present in the inferior wall. No wall motion abnormalities are noted, and in particular there is no inferior wall hypokinesis. It is possible that the fixed abnormality in the inferior wall is due to attenuation by the adjacent diaphragm, but this appears slightly more severe than is usually seen with the latter. No other perfusion abnormalities are noted. Left ventricular wall motion and ejection fraction are normal.
[2017-02-15] MEDS ORDERED: TRAZODONE HCL50 M1 PO ×3 (16:24→17:03)
[2017-02-15 16:25] VITALS: BP 148/65
[2017-02-15] MEDS ORDERED: TRAZODONE HCL100 M1 PO (16:59)
--- NOTE | 2017-02-15 17:16 | Discharge Summary ---
Visit Information Visit Dates Admission Date: 02/13/17 Discharge Date: 02/15/17 Hospital Course Course Attending Physician: KAMLESH GUZMÁN MD Primary Care Physician: RINA RICO,HAYLEY Barker Consulting Request: 1 Consulting Specialty: Cardiology Consulting Physician: Kamlesh Quiroz MD Reason for Consult: Chest pain and dizziness Consulting Request: 2 Consulting Specialty: Neurology Consulting Physician: Jorge Pisano Reason for Consult: Lightheadedness and dizziness Hospital Course: Mr. Laguerre is a 82 y/o M with PMHx of HTN and mild dementia who presented with new onset dizziness and transient word-finding difficulties. Patient also endorsed intermittent episodes of chest pain, aggravated by walking and relieved by rest, that had been ongoing for six months prior to current presentation. On initial presentation in the ED, vitals were normal except for bradycardia to low 50s. Neuro exam was nonfocal. CBC, BMP and LFTs were unremarkable. EKG showed left bundle branch block and there were no prior EKGs available for comparison. CXR showed mild cardiomegaly but no acute process. CT Head was negative for any acute intracranial process. Patient was admitted to telemetry for continuous cardiac monitoring to rule out arrhythmia that may have contributed to his current presentation. Below are the issues that were addressed during current admission: #Dizziness/transient word-finding difficulties: Potential etiologies that were initially entertained included CVA/TIA, orthostatic hypotension and cardiac arrhythmia. Vitals revealed significant orthostasis which resolved after gentle hydration with normal saline overnight. On telemetry, patient had bradycardia ( HR 45-60 with occasional drop to 30s) throughout current hospitalization but was asymptomatic. Prior to admission metoprolol was held in the setting of bradycardia. Vitamin B12 and lipid panel were checked and were all within normal limits. MRI Brain was performed without contrast, as patient was allergic to MRI contrast with development of hives. It revealed no acute bleeds or infarcts and was remarkable for changes consistent with diffuse volume loss and sequelae of chronic microvascular ischemic disease. Carotid Doppler ultrasound was performed as part of TIA work-up and demonstrated 50-79% stenosis of the mid left internal carotid artery, however per neurology, this was felt to be asymptomatic with no indication for vascular surgery evaluation. According to neurology, patient's current presentation was most likely secondary to generalized cerebral hypoperfusion due to blood pressures that are on the low side for his age and in the setting of cerebrovascular disease, and an acute neurologic process was unlikely. Medication list was reviewed and revealed multiple medications that could potentially provoke orthostasis including trazodone, clonazepam, donepezil and tamsulosin. Decision was made to reduce trazodone dose by half on discharge and continue the other medications. Of note, patient admitted to taking several nutritional supplements. Patient's symptoms had resolved by day of discharge. He was evaluated by physical therapy who felt that patient can ambulate independently without the use of assistive device and can be safely discharged home to assisted living facility without any services. * Per his request to follow up with a PCP in the area, patient was given referral for Dr. Espinoza and instructed to follow up with him within one week of discharge. * Patient will follow up with his own neurologist Dr. Leon and has an appointment scheduled next month. * Prior to admission trazodone was reduced in half to 25 mg PO QPM. * Although prior to admission metoprolol succinate 50 mg PO daily was held during this admission, patient should resume medication as outpatient in view of significant risk factors for CAD. * HCTZ was discontinued on discharge. * Patient was instructed to bring a list of all his supplements as well as the bottles to his PCP for further evaluation and refrain from taking them until then. #Chest pain: ACS was ruled out with serial EKGs and troponins that were negative. ECHO was performed which showed mild increase in left ventricular wall thickness, normal LVEF estimated at 55-60% and no obvious regional wall motion abnormalities. Pharmacological stress test was performed which was without any wall motion abnormalities and demonstrated a moderately sized fixed perfusion abnormality in the inferior wall which could be due to attenuation by the adjacent diaphragm, but appeared slightly more severe than is usually seen with the latter. * Patient was instructed to follow up with consulting web production manager Dr. Quiroz on discharge. Allergies: Coded Allergies: azithromycin (From ZITHROMAX) (UNKNOWN 02/13/17) Penicillins (Mild, ABDOMINAL CRAMPING 10/31/16) Uncoded Allergies: MRI DYE (Severe, RED, HOT SKIN REACTION 10/31/16) Pertinent Lab Results: SERVICE DATE: 02/15/17 EXAM TYPE: NUC - MYOCARDIAL PERFUSION IMAGING PERSANTINE STRESS AND RESTING SPECT MYOCARDIAL PERFUSION IMAGING STUDY WITH GATED SPECT IMAGES: CLINICAL INDICATION: Atypical chest pain. PROCEDURE: Regional myocardial perfusion was assessed using a 1 day protocol. Stress images were obtained on 02/15/2017 following the intravenous administration of 18.8 mCi Tc 99m Myoview. Stress consisted of 45 mg Persantine given intravenously. Following the sestamibi injection no aminophylline was given intravenously. Rest images were obtained 02/15/2017 following the intravenous administration of 30.6 mCi Technetium 99m Myoview. Single photon emission tomographic (SPECT) images were obtained. SPECT images were acquired in a 64 x 64 matrix of 64 projections over 180 degrees. These were reconstructed into standard short axis, horizontal and vertical long axis cardiac projections. FINDINGS: The post stress images show the left ventricular chamber to be normal in size. There is a moderately sized region of markedly diminished activity that involves the entire inferior wall and extends to the apex.. The activity in the other frey appears normal. The rest images are not significantly changed from the post stress images and also show diffusely decreased activity in the inferior wall that extends to the apex. The other frey appear normal and are unchanged from the post stress images. The images were obtained using a gated SPECT technique, which permits visualization of wall motion and calculation of the left ventricular ejection fraction. No left ventricular wall motion abnormalities are noted. In particular the inferior wall moves normally. The calculated left ventricular ejection fraction is 70% on the stress study. No previous study is available for comparison. IMPRESSION: A moderately sized fixed perfusion abnormality is present in the inferior wall. No wall motion abnormalities are noted, and in particular there is no inferior wall hypokinesis. It is possible that the fixed abnormality in the inferior wall is due to attenuation by the adjacent diaphragm, but this appears slightly more severe than is usually seen with the latter. No other perfusion abnormalities are noted. Left ventricular wall motion and ejection fraction are normal. Disposition Summary Disposition Principal Diagnosis: Dizziness secondary to generalized cerebral hypoperfusion Additional Diagnosis: Chest pain Orthostatic hypotension Bradycardia with first degree heart block Discharge Disposition: home or self care Discharge Instructions General Discharge Information Code Status: Do Not Resucitate/Intubat Patient's Diet: Regular Diet Patient's Activity: Full Activity/No Limits Follow-Up Instructions/Appts: Please follow up with primary care physician Dr. Adalid Espinoza within one week of discharge. Please follow up with web production manager Dr. Kamlesh Quiroz within one week of discharge. Please follow up with your neurologist Dr. Aaron Leon within two weeks of discharge. Please bring a list of all your supplements as well as the bottles to your appointment with your primary care physician Dr. dAalid Espinoza. Medications at Discharge Discharge Medications: Stop taking the following medications: Hydrochlorothiazide (Hydrochlorothiazide) 25 MG TABLET ORAL DAILY Qty = 60 Trazodone HCl (Trazodone HCl) 100 MG TABLET ORAL Every night Qty = 30 Continue taking these medications: Mometasone Furoate (Nasonex) 17 GM SPRAY.PUMP 2 [place] Both sides of nose DAILY Qty = 1 Comments: NOT GIVEN IN THE HOSPITAL Lansoprazole (Lansoprazole) 30 MG CAPSULE.DR 1 Capsule ORAL DAILY Qty = 90 Comments: Last Taken:02/15/17 Time:6;30 AM Bupropion HCl (Bupropion XL) 150 MG TAB.ER.24H 1 Tablet ORAL DAILY Qty = 90 Comments: Last Taken:02/15/17 Time:1 PM Clonazepam (Clonazepam) 0.5 MG TABLET 1 Tablet ORAL TAKE AT BEDTIME Qty = 30 Comments: Last Taken:NOT GIVEN IN HOSPITAL Time: Donepezil HCl (Donepezil HCl) 5 MG TABLET 1 Tablet ORAL DAILY Qty = 30 Comments: Last Taken:02/15/17 Time:1 PM Metoprolol Succinate (Metoprolol Succinate) 50 MG TAB.ER.24H 1 Tablet ORAL DAILY Qty = 45 Comments: Last Taken:NOT GIVEN IN THE HOSPITAL Time: Aspirin (Ecotrin*) 81 MG TABLET.DR 1 Tablet ORAL DAILY Comments: Last Taken:02/15/17 Time:1 PM Fexofenadine HCl (Karie Allergy) 60 MG TABLET 180 Milligram ORAL Every Day Comments: Last Taken:CLARITIN GIVEN INSTEAD Time: Tamsulosin HCl (Tamsulosin HCl) 0.4 MG CAP.ER.24H 1 Capsule ORAL AT BEDTIME Qty = 30 Comments: Last Taken:02/14/17 Time:11 PM Start taking the following new medications: Trazodone HCl (Trazodone HCl) 50 MG TABLET 0.5 Tablet ORAL Every night Qty = 15 No Refills Comments: Last Taken:02/14/17 Time:11 PM Copies To: ANDER RICO,AARON Godinez; Annette QUIROZ MD; ADALID ESPINOZA DO Attending Review Statement Documenting Attending: KAMLESH GUZMÁN MD Other Findings: The patient was seen and agree with the plan of care upon discharge.
--- NOTE | 2017-02-15 18:40 | ECHOCARDIOGRAM REPORT ---
DARIAN HERNANDEZ Age: 82 : 1935 Gender: M Exam Date: 02/14/2017 19:13 Exam Location: [address] [facility] Ht (in): 67 Wt (lb): 168 BSA: 1.91 BP: 112 / 60 Ordering Physician: SHAILA SHELL MD Referring Physician: Tess Moulton MD Technologist: Jennifer Cole RAIN Room Number: 181 Indications: LIGHTHEADEDNESS Rhythm: Sinus Technical Quality: Fair, Technically difficult study FINDINGS Left Ventricle Normal size left ventricle. No obvious regional wall motion abnormalities. Left ventricular wall thickness mildly increased. Normal left ventricular ejection fraction estimated at 55-60%. Right Ventricle Right ventricle not well visualized, grossly normal. Right Atrium Normal right atrial size. Left Atrium Mild left atrial dilatation. Mitral Valve Mitral valve thickened. Mild mitral regurgitation. Aortic Valve Trileaflet aortic valve. Diffuse thickening (sclerosis) of the aortic valve cusps without reduced excursion. No aortic stenosis. [id number] aortic regurgitation. Eccentric aortic regurgitation jet directed at the mitral valve. Tricuspid Valve Tricuspid valve not well visualized, grossly normal. Mild tricuspid regurgitation. Pulmonic Valve Pulmonic valve not well visualized, grossly normal. Mild pulmonic regurgitation. Pericardium No pericardial effusion. Great Vessels Normal size aortic root and proximal ascending aorta. CONCLUSIONS 1. Aortic sclerosis is present with markedly eccentric mild to moderate aortic insufficiency. 2. Mitral leaflet thickening is present with mild mitral insufficiency and mild left atrial enlargement. 3. There is no pericardial fluid present. 4. The left ventricular chamber size and systolic function are normal with mild concentric hypertrophy. 5. Mild tricuspid and pulmonic insufficiency are present with no evidence of pulmonary hypertension. Tess Moulton M.D. (Electronically Signed) Final Date: 15 February 2017 18:39 MEASUREMENTS (Male / Female) Normal Values 2D ECHO LV Diastolic Diameter PLAX 4.0 cm 4.2 - 5.9 / 3.9 - 5.3 cm LV Systolic Diameter PLAX 2.0 cm 2.1 - 4.0 cm LV Fractional Shortening PLAX 50.0 % 25 - 46 % LV Ejection Fraction 2D Teich 81.8 % IVS Diastolic Thickness 1.3 cm LVPW Diastolic Thickness 1.3 cm LV Relative Wall Thickness 0.7 RV Internal Dim ED PLAX 2.8 cm 1.9 - 3.8 cm LVOT Diameter 1.8 cm Aortic Root Diameter 2.9 cm LA Systolic Diameter LX 3.9 cm 3.0 - 4.0 / 2.7 - 3.8 cm LA Volume 34.0 cm 18 - 58 / 22 - 52 cm Ascending Aorta Diameter 3.4 cm DOPPLER AV Peak Velocity 182.0 cm/s AV Peak Gradient 13.2 mmHg AV Mean Velocity 112.0 cm/s AV Mean Gradient 6.0 mmHg AV Velocity Time Integral 35.9 cm LVOT Peak Velocity 128.0 cm/s LVOT Peak Gradient 6.6 mmHg LVOT Mean Velocity 84.6 cm/s LVOT Mean Gradient 3.0 mmHg LVOT Velocity Time Integral 26.6 cm LVOT Stroke Volume 67.7 cm AV Area Cont Eq vti 1.9 cm AV Area Cont Eq pk 1.8 cm MV Peak Velocity 119.0 cm/s MV Peak Gradient 5.7 mmHg MV Mean Velocity 59.6 cm/s MV Mean Gradient 2.0 mmHg Mitral E Point Velocity 81.4 cm/s Mitral A Point Velocity 96.3 cm/s Mitral E to A Ratio 0.8 MV PHT Velocity 124.0 cm/s MV Deceleration Mobile 542.0 cm/s MV Pressure Half Time 68.6 ms MV Area PHT 3.2 cm MV Deceleration Time 335.0 ms TR Peak Velocity 264.0 cm/s TR Peak Gradient 27.9 mmHg Right Atrial Pressure 5.0 mmHg Pulmonary Artery Systolic Pressu 32.9 mmHg Right Ventricular Systolic Press 32.9 mmHg PV Peak Velocity 167.0 cm/s PV Peak Gradient 11.2 mmHg PV Mean Velocity 96.5 cm/s PV Mean Gradient 5.0 mmHg PV Velocity Time Integral 35.1 cm LV E' Lateral Velocity 9.5 cm/s Mitral E to LV E' Lateral Ratio 8.6 LV E' Septal Velocity 6.4 cm/s Mitral E to LV E' Septal Ratio 12.7
--- NOTE | 2017-02-19 13:53 | IV DIPYRIDAMOLE NUCLEAR STRESS ---
Clinical Diagnosis: Chest pain, R/O coronary artery disease Organ Tuner Electronic: Corazon Vaughan Date of Service: 02/15/17 IV DIPYRIDAMOLE INFUSED: 45 mg IV AMINOPHYLLINE INFUSED: 0 mg PATIENT WEIGHT: 168 lbs INTERPRETATION: The patient's baseline EKG showed normal sinus rhythm; anteriolateral T inversion at 50 BPM. Baseline B/P 118/70. The patient received 45 mg of dipyridamole infused intravenously over a 4 minute period. TC-99M or Myoview was injected after dipyridamole infusion. The patient tolerated the infusion well. There were no EKG changes seen following pharmacologic infusion. Arrhythmias: None IMPRESSION: The test was supervised by the interpreting Sales Merchandiser, who was in attendance during the entire test. No EKG evidence of stress induced myocardial ischemia. See separately dictated Nuclear Report.
== END 2017-02-15 18:30 | DRG 312 ==
LOC: CANRESERV → ENRESERVDT → ENRESERVTM → ERH 10:04 → ERHI 14:25 → ENPENDDIS 14:25 → 1NO 14:25 → EDBEDREQ 16:00 → ERHI 16:01 → 1NO 17:45
PROVIDERS: Emergency Medicine; Internal Medicine; ADMIT Internal Medicine
DX: I95.1 Orthostatic hypotension (principal); I65.22 Occlusion and stenosis of left carotid artery; G30.9 Alzheimer's disease, unspecified; I45.2 Bifascicular block; F02.80 Dementia in other diseases classified elsewhere, unspecified severity, without behavioral disturbance, psychotic disturbance, mood disturbance, and anxiety; I10 Essential (primary) hypertension; F32.9 Major depressive disorder, single episode, unspecified; E53.8 Deficiency of other specified B group vitamins; R26.81 Unsteadiness on feet; E78.5 Hyperlipidemia, unspecified; N40.0 Benign prostatic hyperplasia without lower urinary tract symptoms
CPT/HCPCS: 1NP; 70551; 36415; 78452; 93005; 93010; 93016; 93017; 93306; A9502; J0461; J1245